=== PATIENT | male | born 1940 | race Caucasian/White ===

== ENCOUNTER 2019-05-29 20:48 | Emergency (ER) | payer MEDICARE ==
[~2019-05-29] VITALS: Ht 172.7 cm; Wt 73.9 kg
[2019-05-29] MEDS ORDERED: LEVOTHYROXINE100 MCG PO (21:04)
== END 2019-05-29 22:42 | disposition home or self-care (01) ==
LOC: ED 20:48
DX: S50.311A Abrasion of right elbow, initial encounter (principal); Z23 Encounter for immunization; Z88.8 Allergy status to other drugs, medicaments and biological substances; Z79.899 Other long term (current) drug therapy; W10.9XXA Fall (on) (from) unspecified stairs and steps, initial encounter
CPT/HCPCS: 72040; 73080; 73130; 90471; 90715; 99283-25